=== PATIENT | male | born 1990 ===

== ENCOUNTER 2018-06-28 22:04 | Emergency (ER) | payer MEDICAID ==
[2018-06-28 22:19] VITALS: RESP 20; O2SAT 99
--- NOTE | 2018-06-29 00:36 | C.PDOC ---
History Of Present Illness Pt was brought in by police, under arrest, for medical clearance. Time Seen by Provider: 06/28/18 22:31 Chief Complaint (Nursing): Medical Clearance History Per: Patient, Other (Police) History/Exam Limitations: other (uncooperative) Onset/Duration Of Symptoms: Other (today) Current Symptoms Are (Timing): Still Present Severity: Moderate Additional History Per: Prior Records Past Medical History Reviewed: Historical Data, Nursing Documentation, Vital Signs Vital Signs: Last Vital Signs Temp 97.6 F 06/28/18 22:14 Pulse 79 06/28/18 22:14 Resp 20 06/28/18 22:14 BP 112/77 06/28/18 22:14 Pulse Ox 99 06/28/18 22:14 - Medical History PMH: No Chronic Diseases Surgical History: No Surg Hx Family History: States: Unknown Family Hx - Social History Hx Tobacco Use: Yes Hx Alcohol Use: Yes Hx Substance Use: No (PATIENT DENIES) Review Of Systems Constitutional: Negative for: Fever Cardiovascular: Negative for: Chest Pain Respiratory: Negative for: Shortness of Breath Gastrointestinal: Negative for: Vomiting, Abdominal Pain Musculoskeletal: Negative for: Neck Pain Neurological: Negative for: Weakness Psych: Negative for: Psychosis, Suicidal ideation Physical Exam - Physical Exam Appears: Non-toxic, No Acute Distress, Other (Uncooperative) Skin: Normal Color, Warm, Dry, No Rash Head: Atraumatic, Normacephalic Eye(s): bilateral: PERRL, EOMI, Other (conjunctival injection) Neck: Normal ROM, No Midline Cervical Tenderness, No Step Off Deformity, Supple Cardiovascular: Rhythm Regular Respiratory: Normal Breath Sounds, No Accessory Muscle Use Gastrointestinal/Abdominal: Soft, No Tenderness Extremity: Normal ROM, No Deformity Neurological/Psych: Oriented x3, Normal Motor, Normal Sensation ED Course And Treatment O2 Sat by Pulse Oximetry: 99 Pulse Ox Interpretation: Normal Medical Decision Making Medical Decision Making: Pt is likely intoxicated with Marijuana. Disposition - Disposition Disposition: RELEASED IN POLICE CUSTODY Disposition Time: 00:37 Condition: STABLE Additional Instructions: Patient is medically stable for incarceration. Forms: General Discharge Instructions - Clinical Impression Clinical Impression: Medical clearance for incarceration
[2018-06-29 00:57] VITALS: BP 126/78; PULSE 92; TEMP 98
== END 2018-06-29 00:57 ==
LOC: C.ER 22:04
DX: Z02.89 Encounter for other administrative examinations (principal); Z72.0 Tobacco use